=== PATIENT | female | born 1960 | race Caucasian/White ===

== ENCOUNTER 2016-06-13 20:05 | Emergency (ER) | payer BC ==
[~2016-06-13] VITALS: Ht 165.1 cm; Wt 90.7 kg
--- NOTE | 2016-06-13 20:15 | NUR ---
DR. HARPER IS AT THE BEDSIDE EVALUATING THE PT.
--- NOTE | 2016-06-13 21:06 | NUR ---
CALLED RADIOLOGY RE: CT.
--- NOTE | 2016-06-13 21:20 | NUR ---
CALLED RADIOLOGY RE: CT
--- NOTE | 2016-06-13 21:26 | NUR ---
[employer]INE[employer] AT THE BEDSIDE. PT IS GOING TO [place] [facility]IA [employer].
--- NOTE | 2016-06-13 22:20 | NUR ---
Patient discharged to home in stable condition. Written and verbal after care instructions given. Patient verbalizes understanding of instruction. ambulatory with a steady gait. instructed pt not to drive. pt verbalize understanding. accompanied by friend
[2016-06-13 22:26] VITALS: BP 125/80
== END 2016-06-13 22:26 | disposition home or self-care (01) ==
LOC: ER 20:06
DX: S06.0X9A Concussion with loss of consciousness of unspecified duration, initial encounter (principal); I10 Essential (primary) hypertension; E78.00 Pure hypercholesterolemia, unspecified; W20.8XXA Other cause of strike by thrown, projected or falling object, initial encounter; Y93.9 Activity, unspecified; Y92.9 Unspecified place or not applicable; Y99.9 Unspecified external cause status
CPT/HCPCS: 70450; 72125; 99284; A4606; Z7610

== ENCOUNTER 2023-04-27 17:23 | Emergency (ER) | payer SELFPAY ==
[~2023-04-27] VITALS: Ht 167.6 cm; Wt 104.8 kg
[2023-04-27] MEDS ORDERED: TRAMADOL HCL 50 MG TABLET ONE (18:54)
[2023-04-27] MEDS: TRAMADOL HCL 50 MG TABLET PO ONE (19:00)
[2023-04-27] MEDS ORDERED: IBUP-1955 PO (19:18)
[2023-04-27 19:45] VITALS: BP 136/78; TEMP 98; O2SAT 100
== END 2023-04-27 19:45 | disposition home or self-care (01) ==
LOC: ER 17:29
DX: S00.03XA Contusion of scalp, initial encounter (principal); M25.511 Pain in right shoulder; I10 Essential (primary) hypertension; E78.00 Pure hypercholesterolemia, unspecified; Z79.899 Other long term (current) drug therapy; W01.0XXA Fall on same level from slipping, tripping and stumbling without subsequent striking against object, initial encounter; Y93.89 Activity, other specified; Y92.89 Other specified places as the place of occurrence of the external cause; Y99.8 Other external cause status
CPT/HCPCS: 70450-TC; 72125-TC; 73030-TC

== ENCOUNTER 2024-08-09 11:59 | Emergency (ER) | payer OTHER ==
[~2024-08-09] VITALS: Ht 167.6 cm; Wt 86.2 kg
[~2024-08-09 11:59] MED LIST: IBUP-1955 PO
[2024-08-09 12:04] VITALS: BP 148/83; TEMP 98
[2024-08-09] MEDS: LIDOCAINE 5% (PATCH) 1 EA PATCH TP STA (13:04)
[2024-08-09] MEDS ORDERED: HYDR-4303 PO (13:20)
[2024-08-09] MEDS ORDERED: CYCL5TAB PO (13:20)
[2024-08-09] MEDS ORDERED: IBUP-1955 PO (13:20)
[2024-08-09] MEDS ORDERED: LIDO30AD10 TP (13:20)
[2024-08-09] MEDS ORDERED: IBUPROFEN 600 MG TABLET ONE (13:23)
[2024-08-09] MEDS ORDERED: LIDOCAINE 5% (PATCH) 1 EA PATCH TP ONE (13:23)
[2024-08-09] MEDS: IBUPROFEN 600 MG TABLET PO ONE (13:24)
[2024-08-09 13:43] VITALS: O2SAT 98
== END 2024-08-09 13:36 | disposition home or self-care (01) ==
LOC: ER 12:02
DX: S16.1XXA Strain of muscle, fascia and tendon at neck level, initial encounter (principal); S46.001A Unspecified injury of muscle(s) and tendon(s) of the rotator cuff of right shoulder, initial encounter; I10 Essential (primary) hypertension; E78.5 Hyperlipidemia, unspecified; Z88.0 Allergy status to penicillin; W01.0XXA Fall on same level from slipping, tripping and stumbling without subsequent striking against object, initial encounter; Y93.89 Activity, other specified; Y92.89 Other specified places as the place of occurrence of the external cause; Y99.8 Other external cause status

== ENCOUNTER 2025-02-28 12:35 | Emergency (ER) | payer SELFPAY ==
[~2025-02-28] VITALS: Ht 167.6 cm; Wt 86.2 kg
[~2025-02-28 12:35] MED LIST changes: +CYCL5TAB PO; +HYDR-4303 PO; +LIDO30AD10 TP
[2025-02-28 13:09] VITALS: BP 151/86; TEMP 98.6
[2025-02-28] MEDS ORDERED: OXYC-128 PO (13:29)
[2025-02-28 13:45] VITALS: O2SAT 95
== END 2025-02-28 13:45 | disposition home or self-care (01) ==
LOC: ER 12:40
DX: M54.2 Cervicalgia (principal); M54.50 Low back pain, unspecified; I11.9 Hypertensive heart disease without heart failure; E78.00 Pure hypercholesterolemia, unspecified; Z88.0 Allergy status to penicillin; V89.2XXA Person injured in unspecified motor-vehicle accident, traffic, initial encounter; Y93.89 Activity, other specified; Y92.410 Unspecified street and highway as the place of occurrence of the external cause; Y99.8 Other external cause status